=== PATIENT | female | born 1980 | race Caucasian/White ===

== ENCOUNTER 2020-05-29 16:04 | Emergency (ER) | payer OTHER ==
[~2020-05-29] VITALS: Ht 157.5 cm; Wt 63.5 kg
[2020-05-29] MEDS ORDERED: METHYLPREDNISOLO4 MG (17:09)
[2020-05-29] MEDS ORDERED: BETAMETHASONE 0.1% (17:09)
[2020-05-29] MEDS ORDERED: ALLEGRA ALLERG180 MG PO (20:04)
[2020-05-29] MEDS ORDERED: MEDROLPACK PO (20:04)
== END 2020-05-29 20:12 | disposition home or self-care (01) ==
LOC: ER 16:04
DX: L50.0 Allergic urticaria (principal)

== ENCOUNTER 2024-04-16 08:26 | Outpatient (CLI) | payer OTHER ==
[~2024-04-16 08:26] MED LIST: ALLEGRA ALLERG180 MG PO; BETAMETHASONE 0.1%; MEDROLPACK PO; METHYLPREDNISOLO4 MG
== END 2024-04-16 08:29 | disposition home or self-care (01) ==
LOC: NUCLEAR 08:26
DX: R00.2 Palpitations (principal); I67.89 Other cerebrovascular disease

== ENCOUNTER 2024-04-30 08:39 | Outpatient (CLI) | payer OTHER | END 2024-04-30 08:40 | disposition home or self-care (01) | LOC: NUCLEAR 08:39 | DX: I67.89 Other cerebrovascular disease (principal); R00.2 Palpitations ==